=== PATIENT | female | born 1975 | race Caucasian/White ===

== ENCOUNTER → 2021-04-01 | Day surgery (SDC) | payer OTHER ==
[~2021-04-01] VITALS: Ht 167.6 cm; Wt 124.7 kg
[~2021-04-01] MED LIST: CERTAGEN1 EACH PO; COLACE100 MG PO; CYMBALTA 30MG C30 MG PO; IBUPROFEN800 MG PO; KEFLEX250 MG PO; METFORMIN HCL500 MG PO; PERCOCET 5-3251 EACH PO; SYNTHROID137 MCG PO; VIBRAMYCIN100 MG PO; ZOFRAN4 MG PO
[2021-04-01 08:44] LABS: HCT 45.4 % (37.0-47.0); MCV 90.8 fL (78.0-100.0); RDW 14.2 % (11.5-14.0); WBC 10.2 K/uL (4.0-10.5)
[2021-04-01 09:17] LABS: ALBUMIN 3.7 g/dL (3.4-5.0); BILIRUBIN - TOTAL 0.4 mg/dL (0.2-1.0); BUN/CREAT RATIO (CALC) 18.8 RATIO; CREATININE 0.8 mg/dL (0.51-0.95); GLOBULIN (CALCULATION) 3.5 g/dL; POTASSIUM 4.1 mmol/L (3.5-5.1); TOTAL PROTEIN 7.2 g/dL (6.4-8.2)
== END | disposition home or self-care (01) ==
LOC: FAS 03-31 08:00
PROVIDERS: Surgery
DX: Z12.11 Encounter for screening for malignant neoplasm of colon (principal); N39.0 Urinary tract infection, site not specified; F17.200 Nicotine dependence, unspecified, uncomplicated; K21.9 Gastro-esophageal reflux disease without esophagitis; M19.90 Unspecified osteoarthritis, unspecified site; E03.9 Hypothyroidism, unspecified; E05.00 Thyrotoxicosis with diffuse goiter without thyrotoxic crisis or storm; Z88.2 Allergy status to sulfonamides; Z88.1 Allergy status to other antibiotic agents; Z91.040 Latex allergy status; Z88.6 Allergy status to analgesic agent
CPT/HCPCS: 36415; 80053; J2250; J2704; J7120